=== PATIENT | male | born 1960 | race Hispanic/Latino ===

== ENCOUNTER 2017-04-13 08:25 | Outpatient (CLI) | payer OTHER ==
[2017-04-13 09:02] LABS: #Basophils 0.1 thou/uL (0.0-0.2); #Eosinphils 0.1 thou/uL (0.0-0.7); #Lymphocytes 1.3 thou/uL (1.20-3.40); #Monocytes 0.5 thou/uL (0.11-0.59); #Neutrophils 6.1 thou/uL (1.40-6.50); %Basophils 1.3 % (0.0-1.0); %Eosinophils 1.2 % (0.0-10.0); %Lymphocytes 15.5 % (21.0-51.0); %Monocytes 6.1 % (0.0-10.0); %Neutrophils 75.9 % (42.0-75.0); Hemoglobin 14.7 g/dL (14.0-18.0); Mean Corpuscular HGB CONC 32.9 g/dL (32.0-36.0); Mean Corpuscular Hemoglobin 29.1 pg (27.0-31.0); Mean Corpuscular Volume 88.3 fl (80.0-94.0); Mean Platelet Volume 10.8 fL (7.4-10.4); Platelet Count 232 thou/uL (130-400); RBC Distribution Width 11.6 % (11.5-14.5); Red Blood Cell (RBC) Count 5.06 mill/uL (4.70-6.10); White Blood Cell (WBC) Count 8.1 thou/uL (4.8-10.8)
== END 2017-04-13 08:26 | disposition home or self-care (01) ==
LOC: NAVSJIPCSP 08:25 → NAV LAB 08:26
PROVIDERS: ATTEND Internal Medicine
DX: I11.9 Hypertensive heart disease without heart failure (principal); J32.1 Chronic frontal sinusitis; J40 Bronchitis, not specified as acute or chronic
CPT/HCPCS: 36415; 85025

== ENCOUNTER 2017-04-13 08:38 | Outpatient (CLI) | payer OTHER ==
--- NOTE | 2017-04-13 09:59 | RAD ---
TWO VIEWS CHEST: History: Bronchitis. Coronary disease. Comparison: None. FINDINGS: Two views chest. Normal cardiac silhouette. The pulmonary vessels and hilum are normal. No mass. No consolidation. No pneumothorax. No osseous abnormality. IMPRESSION: No acute cardiopulmonary process. POS: [facility]
== END 2017-04-13 08:39 | disposition home or self-care (01) ==
LOC: NAVSJIPCSP 08:38 → NAV RAD 08:39
PROVIDERS: ATTEND Internal Medicine
DX: J40 Bronchitis, not specified as acute or chronic (principal); I11.9 Hypertensive heart disease without heart failure
CPT/HCPCS: 36415; 71020; 85025

== ENCOUNTER 2017-06-14 11:37 | Outpatient (CLI) | payer OTHER ==
[2017-06-14 17:55] LABS: Cardiac Risk 3.6 (Less than 4.5)
== END 2017-06-14 11:38 | disposition home or self-care (01) ==
LOC: NAVSJIPCSP 11:37
PROVIDERS: ATTEND Internal Medicine
DX: N41.0 Acute prostatitis (principal); E78.5 Hyperlipidemia, unspecified
CPT/HCPCS: 36415; 80061; 87086

== ENCOUNTER 2024-08-28 17:31 | Outpatient (CLI) | payer OTHER | END 2024-08-28 17:32 | disposition home or self-care (01) | LOC: NAV RAD 17:31 | PROVIDERS: ATTEND Nurse Practitioner Family | DX: M79.672 Pain in left foot (principal) ==